=== PATIENT | female | born 1950 | race Caucasian/White ===

== ENCOUNTER 2016-11-14 11:31 | Emergency (ER) | payer SELFPAY ==
[~2016-11-14] VITALS: Ht 160 cm; Wt 76.0 kg
[~2016-11-14 11:31] MED LIST: BENZ100 PO; Z.0.NO CURRENT MEDS
[2016-11-14 11:33] VITALS: BP 216/93; PULSE 80; RESP 29; TEMP 97.4; O2SAT 98
[2016-11-14 12:37] VITALS: BP 185/77
--- NOTE | 2016-11-14 12:37 | PD ---
Physical Exam Date Seen by Provider: Nov 14, 2016 Time Seen by Provider: 12:35 Narrative 66 YOWF WITH 2 DAY H/O SHINGLES L SIDED. WORSE THAN LAST TIME. VITALS WITH INCREASED BP . AWAITING BED PLACEMENT Data Data Last Documented VS Vital Signs Date Time Temp Pulse Resp B/P Pulse Ox O2 Delivery O2 Flow Rate FiO2 11/14/16 11:33 97.4 80 29 216/93 98 Room Air [facility] Medical Record Reviewed: Yes Supervised Visit with BRIANNA: Yes Wilfredo Zuluaga Nov 14, 2016 12:37
[2016-11-14] MEDS ORDERED: IBUP-232 PO (12:53)
--- NOTE | 2016-11-14 12:53 | PD ---
HPI Chief Complaint: Skin Problem Time Seen by Provider: 12:51 Travel History International Travel<30 days: No Contact w/Intl Traveler<30days: No Traveled to known affect area: No History of Present Illness HPI 66-year-old female presents to the emergency Department with complaint of a rash to her back that started about a week ago and then has spread to her left breast within the last 3 days. She has history of shingles and says her symptoms are very similar to her past outbreak. She denies fever, chills, nausea, vomiting. Has been taking Tylenol with some relief of pain. She presents because she would like something more for pain. She has tried topical ointments with no relief. Allergies to bees. No other modifying factors or associated signs and symptoms. PFSH Past Medical History Cardiovascular Problems: Yes (HEART MURMUR) Past Surgical History Eye Surgery: Yes (cataract) Hysterectomy: Yes Social History Alcohol Use: No Tobacco Use: No Substance Use: No Allergies-Medications (Allergen,Severity, Reaction): Coded Allergies: Bees (Verified Allergy, Severe, ANAPHALACTIC, 11/14/16) Reported Meds & Prescriptions Reported Meds & Active Scripts Active Valacyclovir (Valacyclovir HCl) 1 Gm Tab 1,000 Mg PO TID 7 Days Neurontin (Gabapentin) 300 Mg Cap 300 Mg PO TID PRN Lortab (Hydrocodone-Acetaminophen) 5-325 Mg Tab 1 Tab PO Q6H PRN Ibuprofen 600 Mg Tab 600 Mg PO Q8HR PRN Tessalon Perles (Benzonatate) 100 Mg Cap 100 Mg PO TID Reported No Current Meds (Miscellaneous Medication) Misc Review of Systems Except as stated in HPI: all other systems reviewed are Neg Physical Exam Narrative GENERAL: Well-nourished, well-developed patient, in no acute distress; afebrile , nontoxic-appearing SKIN: Warm and dry. Left upper back and left breast with erythremic grouped vesicles present in a dermatomal distribution; all areas are in different stages of healing and without signs of infection. No drainage or edema. HEAD: Atraumatic. Normocephalic. EYES: Pupils equal and round. No scleral icterus. No injection or drainage. ENT: Mucosa pink and moist. Airway patent. NECK: Trachea midline. CARDIOVASCULAR: Regular rate. RESPIRATORY: No accessory muscle use. GASTROINTESTINAL: Rounded. MUSCULOSKELETAL: No obvious deformities. No clubbing. No cyanosis. No edema. NEUROLOGICAL: Awake and alert. Oriented 3. No obvious cranial nerve deficits. Motor grossly within normal limits. Normal speech. PSYCHIATRIC: Appropriate mood and affect; insight and judgment normal. Data Data Last Documented VS Vital Signs Date Time Temp Pulse Resp B/P Pulse Ox O2 Delivery O2 Flow Rate FiO2 11/14/16 12:37 185/77 11/14/16 11:33 97.4 80 29 98 Room Air MDM Medical Decision Making Medical Screen Exam Complete: Yes Emergency Medical Condition: Yes Medical Record Reviewed: Yes Differential Diagnosis Contact dermatitis, herpes zoster, hives Narrative Course 66-year-old female physical exam consistent with shingles rash to her left upper back and left breast. Patient is afebrile and nontoxic-appearing. She denies fever, chills, nausea, vomiting. Valacyclovir, Lortab, Neurontin, ibuprofen prescribed for home. Patient verbalizes understanding and agreement with treatment plan. Patient is medically cleared and stable for discharge. Discussed reasons to return to the emergency department. Instructed patient to follow up with primary care provider. Patient agrees with treatment plan. The patients vital signs are stable and the patient is stable for outpatient follow- up and treatment. Patient discharged home, stable and in no acute distress. Diagnosis Primary Impression: Shingles rash Qualified Code: B02.9 - Herpes zoster without complication Referrals: [facility] Primary Care Physician Patient Instructions: General Instructions, Shingles (ED) Departure Forms: Tests/Procedures Additional Instructions: Take medications as prescribed Cold, wet compresses to the rash to help relieve itching and pain as needed Cool Bath to help relieve itching and pain as needed Follow-up with a primary care provider Return to the emergency department immediately with worsening of symptoms Med/Other Pt SpecificInfo: Prescription(s) given Scripts Valacyclovir 1 Gm Tab1,000 Mg PO TID 7 Days Ref 0 Prov:Regi RamirezP 11/14/16 Gabapentin (Neurontin)300 Mg [id number] Mg PO TID PRN (PAIN SCALE 1 TO 10) #30 CAP Ref 0 Prov:Regi Raimrez PHARMACIST AIDE 11/14/16 Hydrocodone-Acetaminophen (Lortab)5-325 Mg Tab1 Tab PO Q6H PRN (PAIN GREATER THAN 5) #15 TAB Ref 0 Prov:Christal Jimenez MD 11/14/16 Ibuprofen 600 Mg [id number] Mg PO Q8HR PRN (PAIN LESS THAN 5 ON SCALE) #20 TAB Ref 0 Prov:Regi Ramirez 11/14/16 Disposition: 01 DISCHARGE HOME Condition: Stable Regi Ramirez Nov 14, 2016 12:53
[2016-11-14] MEDS ORDERED: HYDR-3533 PO (12:54)
[2016-11-14] MEDS ORDERED: NEUR300C PO (12:59)
[2016-11-14] MEDS ORDERED: VALA1TAB PO (13:02)
== END 2016-11-14 13:16 | disposition home or self-care (01) ==
LOC: NETRI 11:31
DX: B02.9 Zoster without complications (principal)
CPT/HCPCS: 99282